=== PATIENT | female | born 1980 | race Caucasian/White ===

== ENCOUNTER 2017-11-16 16:43 | Emergency (ER) | payer OTHER ==
--- NOTE | 2017-11-16 16:51 | EDPHY ---
H & P Time Seen by Provider: 11/16/17 16:50 HPI/ROS: HPI: This is a 37-year-old female who presents with Chief Complaint: Pain all over and thinks she is going to Location:psych Quality: Panic attack Duration: 1-3 hours prior to arrival Signs and Symptoms:+ anxiety, + recent loss, + relationship issues, + shortness of breath, no chest pain, no suicidal ideation, no homicidal ideation, no hallucinations, no paranoia Timing: Acute on chronic Severity: Moderate Context: Patient has a history of depression anxiety for which she takes buspirone presents via EMS as she woke up this morning and felt grief and panic over the recent break-up with her fiance. She reports that she feels aching pain all over body primarily in bilateral lumbar area. Around 11:30 this morning after she started to have increased anxiety and panic attacks including hyperventilation she started to drink alcohol. Denies any radiation/weakness/ urinary symptoms/incontinence/injury. No injury or trauma. Patient reports that she feels numbness and tingling in waves ago through her body accompanied by hot flashes intermittently several times today. She does not like to see a psychiatrist or psychologist as talking about her problems makes the"things worse." She reports that she lives alone but has a strong family and friends support system. Denies any fever, cough, chills, chest pain, abdominal pain, nausea, vomiting. Upon my entrance to the room patient is clearly hyperventilating and extremely anxious. Modifying Factors: None Comment: ROS: see HPI Constitutional: No fever, no chills, no weight loss Eyes: No blurred vision Respiratory: No shortness of breath, no cough Cardiovascular: No chest pain Gastrointestinal: No nausea, no vomiting, no diarrhea Genitourinary: No dysuria Extremities: No myalgias Neurologic: No weakness, no numbness Skin: No rashes Hematologic: No bruising, no bleeding MEDICAL/SURGICAL/SOCIAL HISTORY: Medical history: Depression, anxiety Surgical history: Denies Social history: Employed. Lives alone. CONSTITUTIONAL: Extremely anxious well-appearing adult female, awake and alert , no obvious distress HEENT: Atraumatic and normocephalic, PERRL, EOMI. Tympanic membranes clear. Oropharynx clear, no exudate and moist pink mucosa. Airway patent. No lymphadenopathy. No meningismus. Cardiovascular: Normal S1/S2, regular rate, regular rhythm, without murmur rub or gallop. PULMONARY/CHEST: Symmetrical and nontender. Clear to auscultation bilaterally. Good air movement. No accessory muscle usage. ABDOMEN: Soft, nondistended, nontender, no rebound, no guarding, no peritoneal signs, no masses or organomegaly. No CVAT. EXTREMITIES: 2/2 pulses, strength 5/5, no deformities, no clubbing, no cyanosis or edema. NEUROLOGICAL: no focal neuro deficits. GCS 15. SKIN: Warm and dry, no erythema. no rash. Good capillary refill. PSYCH: Poor eye contact, no flight of ideas, +organized thought process, fair insight and judgment, no auditory and visual command hallucinations, no suicidal ideation with a plan, no homicidal ideation, not paranoid, + guarded Source: Patient Exam Limitations: No limitations Constitutional: Initial Vital Signs Temperature (C) 36.6 C 11/16/17 16:51 Heart Rate 96 11/16/17 16:51 Respiratory Rate 16 11/16/17 16:51 Blood Pressure 137/82 H 11/16/17 16:51 O2 Sat (%) 98 11/16/17 16:51 O2 Delivery Mode Room Air Allergies/Adverse Reactions: alprazolam [From Xanax] Allergy (Verified 11/16/17 16:49) Penicillins Allergy (Verified 11/16/17 16:49) Home Medications: Medication Instructions Recorded busPIRone 11/16/17 hydrOXYzine HCL [Vistaril 25MG] 25 - 50 mg PO Q12 PRN #12 tab 11/16/17 Medical Decision Making ED Course/Re-evaluation: Labs, urinalysis and UDS ordered. Does not meet M1 hold or Detainer criteria. Patient has an allergy to Xanax so given Klonopin. Vital signs stable upon arrival. I have asked the patient to call a family member to come to the emergency room to contract for safety, drive her home after the ER visit and stay with her. Given a small dose of hydroxyzine for severe anxiety in the interim until she follows up with psychiatrist/psychologist. Urinalysis shows 2+ ketones and trace bacteria. No clear signs of infection. Sent for urine culture. No indication to start antibiotics. 1822: Labs reviewed and showed decreased CO2 and increased anion gap consistent with hyperventilation patient described. Serum ethanol 347. 1827: Reassessed patient who has been sleeping soundly for the last 45 min. Gave patient the option of being discharged to the [facility] for detox and treatment and she has politely declined. Patient reports that she will call her father to come pick her up. This patient was seen under the supervision of my secondary supervising physician. I evaluated care for this patient independently. Discussed this patient with Dr. Hdz who did not see the patient. Differential Diagnosis: Differential diagnosis includes but is not limited to grief, functional in situational depression, generalized anxiety disorder, panic attack. - Data Points Laboratory Results: Laboratory Results 11/16/17 17:20 11/16/17 17:20 11/16/17 11/16/17 11/16/17 17:50 17:20 17:20 WBC RBC Hgb Hct MCV MCH MCHC RDW Plt Count MPV Neut % (Auto) Lymph % (Auto) [place] % (Auto) Eos % (Auto) Baso % (Auto) Nucleat RBC Rel Count Absolute Neuts (auto) Absolute Lymphs (auto) Absolute Monos (auto) Absolute Eos (auto) Absolute Basos (auto) Absolute Nucleated RBC Immature Gran % Immature Gran # Sodium 141 mEq/L mEq/L (135-145) Potassium 4.4 mEq/L mEq/L (3.5-5.2) Chloride 101 mEq/L mEq/L (97-110) Carbon Dioxide 9 mEq/l L* mEq/l (22-31) Anion Gap 31 mEq/L H mEq/L (8-16) BUN 13 mg/dL mg/dL (7-23) Creatinine 0.7 mg/dL mg/dL (0.6-1.0) Estimated GFR > 60 Glucose 59 mg/dL L mg/dL (70-100) Calcium 8.7 mg/dL mg/dL (8.5-10.4) Troponin I < 0.012 ng/mL ng/mL (0.000-0.034) Beta HCG, Qual NEGATIVE Urine Color YELLOW Urine Appearance CLEAR Urine pH 5.0 (5.0-7.5) Ur Specific [place] 1.019 (1.002-1.030) Urine Protein 1+ H (NEGATIVE) Urine Ketones 2+ H (NEGATIVE) Urine Blood NEGATIVE (NEGATIVE) Urine Nitrate NEGATIVE (NEGATIVE) Urine Bilirubin NEGATIVE (NEGATIVE) Urine Urobilinogen NEGATIVE EU EU (0.2-1.0) Ur Leukocyte Esterase NEGATIVE (NEGATIVE) Urine RBC 1-3 /hpf /hpf (0-3) Urine WBC 1-3 /hpf /hpf (0-3) Ur Epithelial Cells TRACE /lpf /lpf (NONE-1+) Urine Bacteria TRACE /hpf H /hpf (NONE SEEN) Hyaline Casts 25-50 /lpf H /lpf (0-1) Urine Mucus TRACE /lpf /lpf (NONE-1+) Urine Glucose NEGATIVE (NEGATIVE) Urine Opiates Screen NEGATIVE (NEGATIVE) Urine Barbiturates NEGATIVE (NEGATIVE) Ur Phencyclidine Scrn NEGATIVE (NEGATIVE) Ur Amphetamine Screen NEGATIVE (NEGATIVE) U Benzodiazepines Scrn NEGATIVE (NEGATIVE) Urine Cocaine Screen NEGATIVE (NEGATIVE) U Marijuana (THC) Screen NEGATIVE (NEGATIVE) Ethyl Alcohol 347 mg/dL H mg/dL (0-10) 11/16/17 17:20 WBC 5.30 10^3/uL 10^3/uL (3.80-9.50) RBC 4.92 10^6/uL 10^6/uL (4.18-5.33) Hgb 15.7 g/dL g/dL (12.6-16.3) Hct 44.8 % % (38.0-47.0) MCV 91.1 fL fL (81.5-99.8) MCH 31.9 pg pg (27.9-34.1) MCHC 35.0 g/dL g/dL (32.4-36.7) RDW 13.2 % % (11.5-15.2) Plt Count 401 10^3/uL H 10^3/uL (150-400) MPV 8.8 fL fL (8.7-11.7) Neut % (Auto) 63.4 % % (39.3-74.2) Lymph % (Auto) 29.8 % % (15.0-45.0) [place] % (Auto) 5.5 % % (4.5-13.0) Eos % (Auto) 0.0 % L % (0.6-7.6) Baso % (Auto) 1.1 % % (0.3-1.7) Nucleat RBC Rel Count 0.0 % % (0.0-0.2) Absolute Neuts (auto) 3.36 10^3/uL 10^3/uL (1.70-6.50) Absolute Lymphs (auto) 1.58 10^3/uL 10^3/uL (1.00-3.00) Absolute Monos (auto) 0.29 10^3/uL L 10^3/uL (0.30-0.80) Absolute Eos (auto) 0.00 10^3/uL L 10^3/uL (0.03-0.40) Absolute Basos (auto) 0.06 10^3/uL 10^3/uL (0.02-0.10) Absolute Nucleated RBC 0.00 10^3/uL 10^3/uL (0-0.01) Immature Gran % 0.2 % % (0.0-1.1) Immature Gran # 0.01 10^3/uL 10^3/uL (0.00-0.10) Sodium Potassium Chloride Carbon Dioxide Anion Gap BUN Creatinine Estimated GFR Glucose Calcium Troponin I Beta HCG, Qual Urine Color Urine Appearance Urine pH Ur Specific [place] Urine Protein Urine Ketones Urine Blood Urine Nitrate Urine Bilirubin Urine Urobilinogen Ur Leukocyte Esterase Urine RBC Urine WBC Ur Epithelial Cells Urine Bacteria Hyaline Casts Urine Mucus Urine Glucose Urine Opiates Screen Urine Barbiturates Ur Phencyclidine Scrn Ur Amphetamine Screen U Benzodiazepines Scrn Urine Cocaine Screen U Marijuana (THC) Screen Ethyl Alcohol Medications Given: Discontinued Medications Clonazepam (Klonopin) 1 mg PO EDNOW ONE Stop: 11/16/17 16:58 Last Admin: 11/16/17 17:00 Dose: 1 mg Departure - Departure Disposition: Home, Routine, Self-Care Clinical Impression: Grief reaction, Panic attack as reaction to stress Alcohol intoxication Qualifiers: Complication of substance-induced condition: uncomplicated Qualified Code(s): F10.920 - Alcohol use, unspecified with intoxication, uncomplicated Condition: Good Instructions: Grief and Loss (ED), Anxiety (ED), Panic Attack (ED) Additional Instructions: Establish care with [facility] and regularly attend counseling sessions during this time of grief and loss. Continue to take Wellbutrin as prescribed. Refrain from drinking alcohol excessively. Enroll in an alcohol detox and treatment program. Call 911 if you have thoughts of hurting or killing yourself or anyone else, or have any new or worsening symptoms that concern you. Referrals: [facility] [Outside] - As per Instructions [facility] [Outside] - As per Instructions Prescriptions: hydrOXYzine HCL [Vistaril 25MG] 25 - 50 mg PO Q12 PRN #12 tab PRN Reason: Anxiety
[2017-11-16] MEDS ORDERED: clonazePAM 1 MG TAB PO ONE (16:57)
[2017-11-16 16:58] VITALS: TEMP 97.9
[2017-11-16 17:30] LABS: PLATELET COUNT 401 10^3/uL (150-400)
[2017-11-16 18:56] VITALS: BP 135/70; PULSE 85; RESP 20; O2SAT 95
== END 2017-11-16 18:58 | disposition home or self-care (01) ==
LOC: EDUNIT#
DX: F41.0 Panic disorder [episodic paroxysmal anxiety] (principal); F43.20 Adjustment disorder, unspecified; F10.920 Alcohol use, unspecified with intoxication, uncomplicated
CPT/HCPCS: 80305; G0480

== ENCOUNTER 2018-02-15 00:57 | Emergency (ER) | payer OTHER ==
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
[2018-02-15] MEDS ORDERED: CHLORDIAZEPOXIDE 25MG PREPK#6 BTL TAKEHOME ONE (02:11)
[2018-02-15 02:43] VITALS: BP 129/89
== END 2018-02-15 02:42 | disposition home or self-care (01) ==
LOC: EDUNIT#
DX: F10.129 Alcohol abuse with intoxication, unspecified (principal); F17.200 Nicotine dependence, unspecified, uncomplicated

== ENCOUNTER 2018-02-27 01:19 | Emergency (ER) | payer OTHER ==
[2018-02-27] MEDS ORDERED: ONDANSETRON 4 MG/2 ML VIAL IVP ONE (01:24)
[2018-02-27] MEDS ORDERED: KETOROLAC 30 MG/1 ML SDV IVP ONE (01:24)
[2018-02-27] MEDS ORDERED: NS 1,000 ML IV ONE (01:24)
--- NOTE | 2018-02-27 01:35 | EDPHY ---
H & P Stated Complaint: flank pain Time Seen by Provider: 02/27/18 01:23 HPI/ROS: HPI The patient presents with bilateral flank pain that began at approximately 8:00 p.m. Tonight and has gotten progressively worse since then. The pain is achy, does not radiate, is severe. She has not had this pain before. She denies any dysuria, hematuria. She has had nausea without any vomiting. She has not had fevers or chills. She denies any trauma. She is a heavy alcohol drinker.. REVIEW OF SYSTEMS Constitutional: No fever, no chills. Eyes: No discharge. ENT: No sore throat. Cardiovascular: No chest pain, no palpitations. Respiratory: No cough, no shortness of breath. Gastrointestinal: No abdominal pain, no vomiting. Genitourinary: No hematuria. Musculoskeletal: Bilateral flank pain Skin: No rashes. Neurological: No headache. PMHx: No diabetes, no hypertension Soc Hx: Housed, alcohol abuse PHYSICAL General Appearance: Alert, uncomfortable appearing Eyes: Pupils equal and round no pallor or injection ENT, Mouth: Mucous membranes moist Respiratory: There are no retractions, lungs are clear to auscultation Cardiovascular: Regular rate and rhythm Gastrointestinal: Abdomen is soft and non-tender, no masses, bowel sounds normal Back: There is bilateral CVA tenderness, there is an abrasion to her left flank Neurological: A&O, moves all extremities Skin: Warm and dry, no rashes Musculoskeletal: Neck is supple non tender Extremities: symmetrical, full range of motion Psychiatric: Patient is oriented X 3, there is no agitation Source: Patient, EMS Exam Limitations: No limitations - Medical/Surgical History Hx Asthma: No Hx Chronic Respiratory Disease: No Hx Diabetes: No Hx Cardiac Disease: No Hx Renal Disease: No Hx Cirrhosis: No Hx Alcoholism: Yes Hx HIV/AIDS: No Hx Splenectomy or Spleen Trauma: No Other PMH: anxiety, ETOH - Social History Smoking Status: Current every day smoker Constitutional: Initial Vital Signs Temperature (C) 36.3 C 02/27/18 01:25 Heart Rate 95 02/27/18 01:25 Respiratory Rate 18 02/27/18 01:25 Blood Pressure 119/84 H 02/27/18 01:25 O2 Sat (%) 96 02/27/18 01:25 O2 Delivery Mode Room Air Allergies/Adverse Reactions: acetaminophen [From Vicodin] Allergy (Verified 02/27/18 01:23) hydrocodone [From Vicodin] Allergy (Verified 02/27/18 01:23) Penicillins Allergy (Verified 02/27/18 01:23) Home Medications: Medication Instructions Recorded NK [No Known Home Meds] 02/27/18 Medical Decision Making - Diagnostics Imaging Results: CT abdomen pelvis demonstrates fatty liver without any nephrolithiasis or ureterolithiasis, discussed with Dr. Canas of Radiology Procedures: Bedside limited abdominal Ultrasound- performed and interpreted by me. Indication: Flank pain Findings: No hydronephrosis right kidney, no hydronephrosis left kidney, no visible kidney stones within the kidneys bilaterally Impression: No hydronephrosis bilaterally Differential Diagnosis: 37-year-old female brought in by ambulance for bilateral flank pain which began at about 8:00 p.m. Tonight associated with nausea and no other symptoms. On exam, she is anxious appearing, vital signs are normal, she has tenderness to bilateral flanks. Differential diagnosis includes pyelonephritis, ureterolithiasis, less likely AAA. On reassessment, patient's pain is still present though improved after receiving Toradol and Zofran. Labs do reveal AST greater than ALT concerning for alcoholic hepatitis with elevated lipase. However none of these explain her flank pain. Her UA was equivocal with some red blood cells. I am concerned about ureterolithiasis I plan on CT scan for further assessment. The patient's pain completely resolved within the emergency department. CT scan did not demonstrate any ureterolithiasis or lieu sedate the cause of her pain. She does have a fatty liver. Given that she does not have any irritative voiding symptoms, fever, vomiting, I will not treat her for pyelonephritis at this time. However, I will send a urine culture and if this returns positive then I would initiate treatment. She says she often has is flank pain when she is in alcohol withdrawal. She was given a dose of Ativan here for withdrawals. She will be discharged home. - Data Points Laboratory Results: Laboratory Results 02/27/18 01:29 02/27/18 01:29 02/27/18 02/27/18 02/27/18 01:45 01:29 01:29 WBC RBC Hgb Hct MCV MCH MCHC RDW Plt Count MPV Neut % (Auto) Lymph % (Auto) [place] % (Auto) Eos % (Auto) Baso % (Auto) Nucleat RBC Rel Count Absolute Neuts (auto) Absolute Lymphs (auto) Absolute Monos (auto) Absolute Eos (auto) Absolute Basos (auto) Absolute Nucleated RBC Immature Gran % Immature Gran # Sodium 140 mEq/L mEq/L (135-145) Potassium 4.3 mEq/L mEq/L (3.3-5.0) Chloride 99 mEq/L mEq/L (97-110) Carbon Dioxide 11 mEq/l L mEq/l (22-31) Anion Gap 30 mEq/L H mEq/L (8-16) BUN 13 mg/dL mg/dL (7-23) Creatinine 0.6 mg/dL mg/dL (0.6-1.0) Estimated GFR > 60 Glucose 71 mg/dL mg/dL (70-100) Calcium 9.1 mg/dL mg/dL (8.5-10.4) Total Bilirubin 1.0 mg/dL mg/dL (0.1-1.4) Conjugated Bilirubin 0.5 mg/dL mg/dL (0.0-0.5) Unconjugated Bilirubin 0.5 mg/dL mg/dL (0.0-1.1) AST 364 IU/L H IU/L (14-46) ALT 158 IU/L H IU/L (9-52) Alkaline Phosphatase 84 IU/L IU/L (38-126) Total Protein 8.3 g/dL H g/dL (6.3-8.2) Albumin 5.1 g/dL H g/dL (3.5-5.0) Lipase 392 IU/L H IU/L (23-300) Beta HCG, Qual NEGATIVE Urine Color YELLOW Urine Appearance HAZY Urine pH 5.0 (5.0-7.5) Ur Specific [place] 1.024 (1.002-1.030) Urine Protein 2+ H (NEGATIVE) Urine Ketones 2+ H (NEGATIVE) Urine Blood 1+ H (NEGATIVE) Urine Nitrate NEGATIVE (NEGATIVE) Urine Bilirubin NEGATIVE (NEGATIVE) Urine Urobilinogen NEGATIVE EU EU (0.2-1.0) Ur Leukocyte Esterase NEGATIVE (NEGATIVE) Urine RBC 1-3 /hpf /hpf (0-3) Urine WBC 3-5 /hpf H /hpf (0-3) Ur Epithelial Cells TRACE /lpf /lpf (NONE-1+) Urine Bacteria 2+ /hpf H /hpf (NONE SEEN) Urine Mucus TRACE /lpf /lpf (NONE-1+) Urine Glucose NEGATIVE (NEGATIVE) Ethyl Alcohol 326 mg/dL H mg/dL (0-10) 02/27/18 01:29 WBC 4.41 10^3/uL 10^3/uL (3.80-9.50) RBC 4.68 10^6/uL 10^6/uL (4.18-5.33) Hgb 15.0 g/dL g/dL (12.6-16.3) Hct 42.9 % % (38.0-47.0) MCV 91.7 fL fL (81.5-99.8) MCH 32.1 pg pg (27.9-34.1) MCHC 35.0 g/dL g/dL (32.4-36.7) RDW 13.3 % % (11.5-15.2) Plt Count 196 10^3/uL 10^3/uL (150-400) MPV 8.3 fL L fL (8.7-11.7) Neut % (Auto) 57.4 % % (39.3-74.2) Lymph % (Auto) 35.6 % % (15.0-45.0) [place] % (Auto) 5.9 % % (4.5-13.0) Eos % (Auto) 0.0 % L % (0.6-7.6) Baso % (Auto) 0.9 % % (0.3-1.7) Nucleat RBC Rel Count 0.0 % % (0.0-0.2) Absolute Neuts (auto) 2.53 10^3/uL 10^3/uL (1.70-6.50) Absolute Lymphs (auto) 1.57 10^3/uL 10^3/uL (1.00-3.00) Absolute Monos (auto) 0.26 10^3/uL L 10^3/uL (0.30-0.80) Absolute Eos (auto) 0.00 10^3/uL L 10^3/uL (0.03-0.40) Absolute Basos (auto) 0.04 10^3/uL 10^3/uL (0.02-0.10) Absolute Nucleated RBC 0.00 10^3/uL 10^3/uL (0-0.01) Immature Gran % 0.2 % % (0.0-1.1) Immature Gran # 0.01 10^3/uL 10^3/uL (0.00-0.10) Sodium Potassium Chloride Carbon Dioxide Anion Gap BUN Creatinine Estimated GFR Glucose Calcium Total Bilirubin Conjugated Bilirubin Unconjugated Bilirubin AST ALT Alkaline Phosphatase Total Protein Albumin Lipase Beta HCG, Qual Urine Color Urine Appearance Urine pH Ur Specific [place] Urine Protein Urine Ketones Urine Blood Urine Nitrate Urine Bilirubin Urine Urobilinogen Ur Leukocyte Esterase Urine RBC Urine WBC Ur Epithelial Cells Urine Bacteria Urine Mucus Urine Glucose Ethyl Alcohol Medications Given: Discontinued Medications Sodium Chloride (Ns) 1,000 mls @ 0 mls/hr IV EDNOW ONE; Wide Open PRN Reason: Protocol Stop: 02/27/18 01:25 Last Admin: 02/27/18 01:32 Dose: 1,000 mls Ketorolac Tromethamine (Toradol) 15 mg IVP EDNOW ONE Stop: 02/27/18 01:25 Last Admin: 02/27/18 01:33 Dose: 15 mg Lorazepam (Ativan Injection) 1 mg IVP EDNOW ONE Stop: 02/27/18 02:06 Last Admin: 02/27/18 02:08 Dose: 1 mg Ondansetron HCl (Zofran) 4 mg IVP EDNOW ONE Stop: 02/27/18 01:25 Last Admin: 02/27/18 01:33 Dose: 4 mg Departure - Departure Disposition: Home, Routine, Self-Care Clinical Impression: Flank pain, acute, Fatty liver, alcoholic, Alcohol abuse Condition: Good Instructions: Abuse of Alcohol (ED), Flank Pain (ED) Additional Instructions: It is very important that you stop drinking alcohol as it is seriously affecting her liver. The cause of your pain in her back is not entirely clear but could be related to dehydration. Please make sure to drink plenty of water over the next few days. Please follow-up with your primary care doctor in the next 1-2 days. If you do not have a primary care doctor, I have listed the on- call outpatient medicine doctor that I can see you for a follow-up visit. Referrals: Pedrito Ellis MD [Medical Doctor] - As per Instructions
[2018-02-27 01:38] LABS: PLATELET COUNT 196 10^3/uL (150-400)
[2018-02-27] MEDS ORDERED: LORazepam 2 MG/ML INJ IVP ONE (02:05)
[2018-02-27 03:44] VITALS: BP 123/64
== END 2018-02-27 04:45 | disposition home or self-care (01) ==
LOC: EDUNIT#
DX: K70.0 Alcoholic fatty liver (principal); E86.9 Volume depletion, unspecified; F17.200 Nicotine dependence, unspecified, uncomplicated
CPT/HCPCS: 96374; G0480; J1885; J2060; J2405

== ENCOUNTER 2018-03-04 15:53 | Emergency (ER) | payer SELFPAY ==
[2018-03-04] MEDS ORDERED: PANTOPRAZOLE SODIUM 40 MG VIAL IVP ONE (16:07)
[2018-03-04] MEDS ORDERED: ONDANSETRON 4 MG/2 ML VIAL IVP ONE (16:07)
[2018-03-04] MEDS ORDERED: LORazepam 1 MG TAB PO PRN (16:07)
[2018-03-04] MEDS ORDERED: NS 1,000 ML IV ONE ×2 (16:07→16:51)
[2018-03-04] MEDS ORDERED: LORazepam 2 MG/ML INJ IVP PRN (16:07)
--- NOTE | 2018-03-04 16:09 | EDPHY ---
General - History Smoking Status: Current every day smoker Time Seen by Provider: 03/04/18 15:57 Narrative: CHIEF COMPLAINT: Alcohol, "hurting all over," vomiting HISTORY OF PRESENT ILLNESS: Patient presents by EMS with reports of acute alcohol intoxication, vomiting, "pain all over." She reports daily ingestion of at least 2 bottles of wine with some additional vodka the varies daily. She last had alcohol intake approximately 6 hr ago. Her states he called 911 because he was concerned that he had not heard from for a day and half. When the police arrived, she states that she lost her phone. Due to her above complaints that then transferred here to the hospital at her request. She has 2 days duration of vomiting with intolerance of liquids and solids. She has generalized epigastric discomfort as well as "pain all over."No fever. No chest pain. No cough or shortness of breath. No other associated complaints or modifying factors. REVIEW OF SYSTEMS: Ten systems reviewed and are negative unless otherwise noted in the HPI PCP: "I don't remember" SPECIALISTS: None PAST MEDICAL HISTORY: Anxiety, Alcohol abuse. Three inpatient stays for detoxification PAST SURGICAL HISTORY: No surgical history SOCIAL HISTORY: Nonsmoker. Daily alcohol use consisting of 2 bottles of wine and various amounts of vodka. Denies any drug use. FAMILY HISTORY: Noncontributory EXAMINATION General Appearance: Alert, no distress Head: normocephalic, atraumatic Eyes: Pupils equal and round, no conjunctival pallor or injection ENT, Mouth: Mucous membranes moist. Airway patent Neck: Normal inspection, supple, non-tender Respiratory: Lungs are clear to auscultation Cardiovascular: Regular rate and rhythm. No murmur Gastrointestinal: Abdomen is soft and nontender Back: non-tender, no bony abnormalities Neurological: GCS 15. A&O, nonfocal, normal [id number]. No pronator drift. Mild resting tremor. Skin: Warm and dry, no rash. No petechiae or purpura Extremities: Nontender, no pedal edema Psychiatric: Mood and affect normal DIFFERENTIAL DIAGNOSES: Including but not limited to acute alcohol intoxication, alcoholism, alcohol abuse, pancreatitis, gastritis MDM: 4:00 p.m. Nausea, vomiting and acute alcohol intoxication with chronic alcohol abuse and dependency. Vital signs are within normal limits. I do not appreciate any evidence of delirium tremens or encephalopathy. Her abdominal exam is benign. She does appear very anxious and possibly going to early withdrawals, but she is only 6 hr into cessation of alcohol use. I have ordered the ED alcohol withdrawal protocol and the initial CIWA score is pending. 5:00 p.m. Patient has an at gap of 28 and a serum alcohol level of 519. Her lipase is slightly elevated. She is not tolerating intake by mouth. IV fluids being administered. 5:10 p.m. Case discussed with Dr. Bravo. He agrees with management thus far. Recommends continuation of the 2 L IV fluid and recheck her anion gap and abdominal exam. 6:20 p.m. Patient re-evaluated. She has received 3 L IV fluid resuscitation. Her anion gap has nearly closed 17 now, down from 28. She is awake and alert. She is ambulating without any assistance. She has had several drinks of water and juice without any vomiting. She has no abdominal pain. She has no fever. Her heart rate is well within normal limits without any tachycardia. I offered transport to the [facility] for Librium taper but she has declined. I offered admission the hospital but she has declined. She does have significant other at bedside who is willing to assume care for drive her home. I informed that they can present to the [facility] should they change their mind or return here for any return of her symptoms. She is comfortable this plan and discharged home stable condition. SUPERVISION: Patient was independently examined, but I discussed the case with my secondary supervising physician Dr. Bravo ([facility]) - Objective Vital Signs: Initial Vital Signs Temperature (C) 97.3 F 03/04/18 15:53 Heart Rate 86 03/04/18 15:53 Respiratory Rate 16 03/04/18 15:53 Blood Pressure 125/79 H 03/04/18 15:53 O2 Sat (%) 98 03/04/18 15:53 O2 Delivery Mode Room Air Allergies/Adverse Reactions: acetaminophen [From Vicodin] Allergy (Verified 02/27/18 01:23) hydrocodone [From Vicodin] Allergy (Verified 02/27/18 01:23) Penicillins Allergy (Verified 02/27/18 01:23) Home Medications: Medication Instructions Recorded traZODone 03/04/18 Laboratory Results: Laboratory Results 03/04/18 15:53 03/04/18 17:43 03/04/18 03/04/18 03/04/18 18:03 17:43 15:53 WBC RBC Hgb Hct MCV MCH MCHC RDW Plt Count MPV Neut % (Auto) Lymph % (Auto) [place] % (Auto) Eos % (Auto) Baso % (Auto) Nucleat RBC Rel Count Absolute Neuts (auto) Absolute Lymphs (auto) Absolute Monos (auto) Absolute Eos (auto) Absolute Basos (auto) Absolute Nucleated RBC Immature Gran % Immature Gran # Sodium 143 mEq/L mEq/L (135-145) Potassium 3.9 mEq/L mEq/L (3.3-5.0) Chloride 106 mEq/L mEq/L (97-110) Carbon Dioxide 20 mEq/l L mEq/l (22-31) Anion Gap 17 mEq/L H mEq/L (8-16) BUN 12 mg/dL mg/dL (7-23) Creatinine 0.6 mg/dL mg/dL (0.6-1.0) Estimated GFR > 60 Glucose 72 mg/dL mg/dL (70-100) Calcium 6.6 mg/dL L mg/dL (8.5-10.4) Magnesium Total Bilirubin Conjugated Bilirubin Unconjugated Bilirubin AST ALT Alkaline Phosphatase Total Protein Albumin Lipase Beta HCG, Qual NEGATIVE Urine Opiates Screen NEGATIVE (NEGATIVE) Urine Barbiturates NEGATIVE (NEGATIVE) Ur Phencyclidine Scrn NEGATIVE (NEGATIVE) Ur Amphetamine Screen NEGATIVE (NEGATIVE) U Benzodiazepines Scrn NEGATIVE (NEGATIVE) Urine Cocaine Screen NEGATIVE (NEGATIVE) U Marijuana (THC) Screen NEGATIVE (NEGATIVE) Ethyl Alcohol 03/04/18 03/04/18 15:53 15:53 WBC 6.36 10^3/uL 10^3/uL (3.80-9.50) RBC 4.79 10^6/uL 10^6/uL (4.18-5.33) Hgb 15.3 g/dL g/dL (12.6-16.3) Hct 42.5 % % (38.0-47.0) MCV 88.7 fL fL (81.5-99.8) MCH 31.9 pg pg (27.9-34.1) MCHC 36.0 g/dL g/dL (32.4-36.7) RDW 13.5 % % (11.5-15.2) Plt Count 127 10^3/uL L 10^3/uL (150-400) MPV 9.0 fL fL (8.7-11.7) Neut % (Auto) 36.3 % L % (39.3-74.2) Lymph % (Auto) 55.8 % H % (15.0-45.0) [place] % (Auto) 6.6 % % (4.5-13.0) Eos % (Auto) 0.3 % L % (0.6-7.6) Baso % (Auto) 0.8 % % (0.3-1.7) Nucleat RBC Rel Count 0.0 % % (0.0-0.2) Absolute Neuts (auto) 2.31 10^3/uL 10^3/uL (1.70-6.50) Absolute Lymphs (auto) 3.55 10^3/uL H 10^3/uL (1.00-3.00) Absolute Monos (auto) 0.42 10^3/uL 10^3/uL (0.30-0.80) Absolute Eos (auto) 0.02 10^3/uL L 10^3/uL (0.03-0.40) Absolute Basos (auto) 0.05 10^3/uL 10^3/uL (0.02-0.10) Absolute Nucleated RBC 0.00 10^3/uL 10^3/uL (0-0.01) Immature Gran % 0.2 % % (0.0-1.1) Immature Gran # 0.01 10^3/uL 10^3/uL (0.00-0.10) Sodium 142 mEq/L mEq/L (135-145) Potassium 3.9 mEq/L mEq/L (3.3-5.0) Chloride 97 mEq/L mEq/L (97-110) Carbon Dioxide 17 mEq/l L mEq/l (22-31) Anion Gap 28 mEq/L H mEq/L (8-16) BUN 13 mg/dL mg/dL (7-23) Creatinine 0.7 mg/dL mg/dL (0.6-1.0) Estimated GFR > 60 Glucose 80 mg/dL mg/dL (70-100) Calcium 8.9 mg/dL mg/dL (8.5-10.4) Magnesium 1.8 mg/dL mg/dL (1.6-2.3) Total Bilirubin 1.1 mg/dL mg/dL (0.1-1.4) Conjugated Bilirubin 0.6 mg/dL H mg/dL (0.0-0.5) Unconjugated Bilirubin 0.5 mg/dL mg/dL (0.0-1.1) AST 607 IU/L H IU/L (14-46) ALT 316 IU/L H IU/L (9-52) Alkaline Phosphatase 89 IU/L IU/L (38-126) Total Protein 8.0 g/dL g/dL (6.3-8.2) Albumin 5.0 g/dL g/dL (3.5-5.0) Lipase 410 IU/L H IU/L (23-300) Beta HCG, Qual Urine Opiates Screen Urine Barbiturates Ur Phencyclidine Scrn Ur Amphetamine Screen U Benzodiazepines Scrn Urine Cocaine Screen U Marijuana (THC) Screen Ethyl Alcohol 519 mg/dL H* mg/dL (0-10) Medications Given: Discontinued Medications Chlordiazepoxide (Librium 25 Mg Prepack#6) 1 btl TAKEHOME EDNOW ONE Stop: 03/04/18 18:32 Last Admin: 03/04/18 18:45 Dose: Not Given Sodium Chloride (Ns) 1,000 mls @ 0 mls/hr IV EDNOW ONE; Wide Open PRN Reason: Protocol Stop: 03/04/18 16:08 Last Admin: 03/04/18 16:20 Dose: 1,000 mls Sodium Chloride (Ns) 1,000 mls @ 0 mls/hr IV EDNOW ONE; Wide Open PRN Reason: Protocol Stop: 03/04/18 16:52 Last Admin: 03/04/18 17:05 Dose: 1,000 mls Lorazepam (Ativan Injection) 0 mg IVP Q1H PRN; Protocol PRN Reason: Alcohol Withdrawal w/IV access Stop: 03/05/18 04:07 Last Admin: 03/04/18 16:21 Dose: 2 mg Ondansetron HCl (Zofran) 4 mg IVP EDNOW ONE Stop: 03/04/18 16:08 Last Admin: 03/04/18 16:21 Dose: 4 mg Pantoprazole Sodium (Protonix) 40 mg IVP EDNOW ONE Stop: 06/25/18 16:08 Last Admin: 03/04/18 16:21 Dose: 40 mg Departure - Departure Disposition: Home, Routine, Self-Care Clinical Impression: Acute alcohol intoxication Qualifiers: Complication of substance-induced condition: uncomplicated Qualified Code(s): F10.929 - Alcohol use, unspecified with intoxication, unspecified Nausea & vomiting Qualifiers: Vomiting type: unspecified Vomiting Intractability: non-intractable Qualified Code(s): R11.2 - Nausea with vomiting, unspecified Condition: Good Instructions: Alcohol Intoxication (ED), Abuse of Alcohol (ED) Additional Instructions: 2. Return to emergency department for abdominal pain, vomiting, chest pain, fever 3. Strongly recommend alcohol cessation supervised by physician or inpatient care Referrals: [facility] [Outside] - As per Instructions Charley Figueroa MD [Medical Doctor] - As per Instructions
[2018-03-04 16:31] LABS: PLATELET COUNT 127 10^3/uL (150-400)
[2018-03-04] MEDS ORDERED: CHLORDIAZEPOXIDE 25MG PREPK#6 BTL TAKEHOME ONE (18:31)
[2018-03-04 18:42] VITALS: BP 118/65
== END 2018-03-04 18:48 | disposition home or self-care (01) ==
LOC: EDUNIT#
DX: R11.2 Nausea with vomiting, unspecified (principal); F10.929 Alcohol use, unspecified with intoxication, unspecified; E86.9 Volume depletion, unspecified; F17.200 Nicotine dependence, unspecified, uncomplicated
CPT/HCPCS: 80305; 96374; G0480; J2060; J2405

== ENCOUNTER 2018-04-06 15:55 | Emergency (ER) | payer MEDICAID, OTHER ==
[2018-04-06 17:02] VITALS: BP 105/80
[2018-04-06] MEDS ORDERED: chlordiazePOXIDE 25 MG CAP PO ONE (17:09)
[2018-04-06] MEDS ORDERED: LORazepam 2 MG/ML INJ IVP ONE (17:09)
[2018-04-06] MEDS ORDERED: NS 1,000 ML IV ONE (17:09)
--- NOTE | 2018-04-06 18:21 | EDPHY ---
H & P Stated Complaint: withdrawing from ETOH possible siezure last night, tongue swollen - Personal History LMP (Females 10-55): 1-7 Days Ago - Medical/Surgical History Hx Asthma: No Hx Chronic Respiratory Disease: No Hx Diabetes: No Hx Cardiac Disease: No Hx Renal Disease: No Hx Cirrhosis: No Hx Alcoholism: Yes Hx HIV/AIDS: No Hx Splenectomy or Spleen Trauma: No Other PMH: anxiety, ETOH abuse - Social History Smoking Status: Current every day smoker Time Seen by Provider: 04/06/18 17:00 HPI/ROS: Chief complaint: Alcohol withdrawal, possible seizure last night History of present illness: This is a 38-year-old female who presents to the emergency department concerned she is going through alcohol withdrawal. She is concerned she had a seizure last night. She states she has been attempting to cut down on the amount she is drinking over the last few days. Last night she believe she has a seizure she woke up on the floor no she had bitten her tongue. She has felt unwell since then. Her last drink was early this morning. She is describing generalized malaise and shakiness. She has gone through alcohol withdrawal before and this feels similar. She denies other associated signs or symptoms including no fevers or cold symptoms, no paresthesias, no weakness or paralysis, no trauma. Review of systems: A 10 point review of systems was obtained and other than described above was negative (Gelacio Puckett) - Physical Exam Exam: General Appearance: Alert, nontoxic, mildly tremulous. Eyes: Pupils equal and round no pallor or injection. ENT, Mouth: Mucous membranes moist. Respiratory: There are no retractions, lungs are clear to auscultation. Cardiovascular: Regular rate and rhythm. Gastrointestinal: Abdomen is soft and non tender, no masses, bowel sounds normal. Neurological: Alert and oriented x4. Cranial nerves 2-12 grossly intact. Strength and sensation intact and symmetrical. Skin: Warm and dry, no rashes. Musculoskeletal: Neck is supple non tender. Extremities are symmetrical, full range of motion. Psychiatric: Patient is oriented X 3, there is no agitation. (Gelacio Puckett) Constitutional: Initial Vital Signs Temperature (C) 36.7 C 04/06/18 15:59 Heart Rate 93 04/06/18 15:59 Respiratory Rate 20 04/06/18 15:59 Blood Pressure 139/84 H 04/06/18 15:59 O2 Sat (%) 97 04/06/18 15:59 O2 Delivery Mode Room Air Allergies/Adverse Reactions: acetaminophen [From Vicodin] Allergy (Verified 04/06/18 15:58) hydrocodone [From Vicodin] Allergy (Verified 04/06/18 15:58) Penicillins Allergy (Verified 04/06/18 15:58) Home Medications: Medication Instructions Recorded traZODone 03/04/18 Hydroxyzine HCl 03/23/18 Seroquel 03/23/18 DESVENLAFAXINE SUCCINATE 04/06/18 Medical Decision Making ED Course/Re-evaluation: The patient was evaluated and managed by the physician's lab assistant. My cosignature indicates that I reviewed the chart and I agree with the findings and plan of care as documented. I am the secondary supervising physician. ( Ivanna Castro) Patient is discussed with my secondary supervising physician Dr. Ivanna Castro. Patient presents to the emergency department concerned she is going through alcohol withdrawal. She has a history of alcohol abuse. She believes she had a seizure last night. She is feeling unwell and tremulous today. Physical exam does show evidence of tongue biting. She has a nonfocal neurologic exam. Blood studies are obtained, no major derangements. She was IV hydrated with normal saline. Treated with oral Librium and IV Ativan. However, before I was able to revisit the patient and reassess her she apparently had removed her own IV and eloped from the emergency department. I do believe she was fully alert and oriented. I believe she is capable of making her own medical decisions. Again she eloped, she did not inform us she was leaving. (Gelacio Puckett) Differential Diagnosis: Included but not limited to polysubstance abuse, alcohol intoxication, alcohol withdrawal, DTs, electrolyte disturbances (Gelacio Puckett) - Data Points Laboratory Results: Laboratory Results 04/06/18 17:31 04/06/18 17:31 04/06/18 04/06/18 04/06/18 17:31 17:31 17:31 WBC 5.39 10^3/uL 10^3/uL (3.80-9.50) RBC 3.98 10^6/uL L 10^6/uL (4.18-5.33) Hgb 12.8 g/dL g/dL (12.6-16.3) Hct 36.9 % L % (38.0-47.0) MCV 92.7 fL fL (81.5-99.8) MCH 32.2 pg pg (27.9-34.1) MCHC 34.7 g/dL g/dL (32.4-36.7) RDW 14.3 % % (11.5-15.2) Plt Count 134 10^3/uL L 10^3/uL (150-400) MPV 9.9 fL fL (8.7-11.7) Neut % (Auto) 66.7 % % (39.3-74.2) Lymph % (Auto) 18.9 % % (15.0-45.0) [place] % (Auto) 13.4 % H % (4.5-13.0) Eos % (Auto) 0.4 % L % (0.6-7.6) Baso % (Auto) 0.2 % L % (0.3-1.7) Nucleat RBC Rel Count 0.0 % % (0.0-0.2) Absolute Neuts (auto) 3.60 10^3/uL 10^3/uL (1.70-6.50) Absolute Lymphs (auto) 1.02 10^3/uL 10^3/uL (1.00-3.00) Absolute Monos (auto) 0.72 10^3/uL 10^3/uL (0.30-0.80) Absolute Eos (auto) 0.02 10^3/uL L 10^3/uL (0.03-0.40) Absolute Basos (auto) 0.01 10^3/uL L 10^3/uL (0.02-0.10) Absolute Nucleated RBC 0.00 10^3/uL 10^3/uL (0-0.01) Immature Gran % 0.4 % % (0.0-1.1) Immature Gran # 0.02 10^3/uL 10^3/uL (0.00-0.10) Platelet Estimate Not Reported Sodium 136 mEq/L mEq/L (135-145) Potassium 3.6 mEq/L mEq/L (3.3-5.0) Chloride 100 mEq/L mEq/L (97-110) Carbon Dioxide 24 mEq/l mEq/l (22-31) Anion Gap 12 mEq/L mEq/L (8-16) BUN 8 mg/dL mg/dL (7-23) Creatinine 0.5 mg/dL L mg/dL (0.6-1.0) Estimated GFR > 60 Glucose 102 mg/dL H mg/dL (70-100) Calcium 10.2 mg/dL mg/dL (8.5-10.4) Magnesium 1.5 mg/dL L mg/dL (1.6-2.3) Total Bilirubin 1.1 mg/dL mg/dL (0.1-1.4) Conjugated Bilirubin 0.3 mg/dL mg/dL (0.0-0.5) Unconjugated Bilirubin 0.8 mg/dL mg/dL (0.0-1.1) AST 85 IU/L H IU/L (14-46) ALT 53 IU/L H IU/L (9-52) Alkaline Phosphatase 73 IU/L IU/L (38-126) Total Protein 8.2 g/dL g/dL (6.3-8.2) Albumin 4.8 g/dL g/dL (3.5-5.0) Lipase 190 IU/L IU/L (23-300) Beta HCG, Qual NEGATIVE Medications Given: Discontinued Medications Chlordiazepoxide (Librium 25 Mg Prepack#6) 1 btl TAKEHOME EDNOW ONE Stop: 04/06/18 19:48 Last Admin: 04/06/18 19:54 Dose: 1 btl Chlordiazepoxide HCl (Librium) 50 mg PO EDNOW ONE Stop: 04/06/18 17:10 Last Admin: 04/06/18 17:32 Dose: 50 mg Sodium Chloride (Ns) 1,000 mls @ 0 mls/hr IV EDNOW ONE; Wide Open PRN Reason: Protocol Stop: 04/06/18 17:10 Last Admin: 04/06/18 17:30 Dose: 1,000 mls Lorazepam (Ativan Injection) 2 mg IVP EDNOW ONE Stop: 04/06/18 17:10 Last Admin: 04/06/18 17:32 Dose: 2 mg Departure - Departure Disposition: Against Medical Advice Clinical Impression: Alcohol withdrawal Qualifiers: Complication of substance-induced condition: uncomplicated Qualified Code(s): F10.230 - Alcohol dependence with withdrawal, uncomplicated Instructions: Chlordiazepoxide (By mouth), Abuse of Alcohol (ED) Referrals: [facility] [Outside] - As per Instructions NONE *PRIMARY CARE P,. [Primary Care Provider] - As per Instructions
[2018-04-06 19:06] LABS: PLATELET COUNT 134 10^3/uL (150-400)
[2018-04-06] MEDS ORDERED: CHLORDIAZEPOXIDE 25MG PREPK#6 BTL TAKEHOME ONE (19:47)
== END 2018-04-06 19:08 | disposition left against medical advice (07) ==
DX: F10.230 Alcohol dependence with withdrawal, uncomplicated (principal); E86.9 Volume depletion, unspecified; F17.200 Nicotine dependence, unspecified, uncomplicated
CPT/HCPCS: 96374; J2060

== ENCOUNTER 2018-04-07 01:43 | Inpatient (IN) | payer MEDICAID, OTHER ==
[2018-04-07] MEDS ORDERED: LORazepam 2 MG/ML INJ ONE (02:14)
[2018-04-07] MEDS ORDERED: LORazepam 2 MG/ML INJ IVP ONE (02:19)
[2018-04-07] MEDS ORDERED: LORazepam 1 MG TAB PO PRN (02:45)
[2018-04-07 02:55] LABS: PLATELET COUNT 134 10^3/uL (150-400)
[2018-04-07] MEDS ORDERED: chlordiazePOXIDE 25 MG CAP PO ONE (03:02)
[2018-04-07] MEDS ORDERED: ONDANSETRON DISINTEGRATING 4 MG TAB PO PRN (03:03)
[2018-04-07] MEDS ORDERED: ONDANSETRON 4 MG/2 ML VIAL IVP PRN (03:03)
--- NOTE | 2018-04-07 03:05 | EDPHY ---
H & P Stated Complaint: PS, PARANOIA, HALLUCINATION Time Seen by Provider: 04/07/18 01:49 HPI/ROS: Chief Complaint: Alcohol withdrawal, hallucinations, paranoia HPI: 38-year-old woman well known to this emergency department with a history of chronic alcohol abuse. She was actually here late yesterday evening for alcohol withdrawal and left against medical advice. She was found out on the street this morning. She states she was playing hide and seek with her father who was hiding in the bushes. Per EMS she has been making very vague bizarre comments. She is very tremulous in admits to being in alcohol withdrawal. The last drink was yesterday morning. She is not suicidal or homicidal. Does not have a history of mental illness. No nausea or vomiting. No abdominal pain. No fevers or chills. ROS: 10 point Review of Systems is negative except as noted in the HPI. PMH: Chronic alcohol abuse Social History: No smoking, daily heavy alcohol Family History: non-contributory Physical Exam: Gen: Awake, Alert, No Distress, tremulous, delusional HEENT: Nose: no rhinorrhea Eyes: PERRLA, EOMI Mouth: Dry mucosa Neck: Supple, no JVD Chest: nontender, lungs clear to auscultation Heart: S1, S2 normal, no murmur Abd: Soft, non-tender, no guarding Back: no CVA tenderness, no midline tenderness Ext: no edema, non-tender Skin: no rash Neuro: CN II-XII intact, Sensation grossly intact, Strength 5/5 in bilateral upper and lower extremities - Personal History LMP (Females 10-55): 1-7 Days Ago Current Tetanus Diphtheria and Acellular Pertussis (TDAP): Yes - Medical/Surgical History Hx Asthma: No Hx Chronic Respiratory Disease: No Hx Diabetes: No Hx Cardiac Disease: No Hx Renal Disease: No Hx Cirrhosis: No Hx Alcoholism: Yes Hx HIV/AIDS: No Hx Splenectomy or Spleen Trauma: No Other PMH: anxiety, ETOH abuse - Social History Smoking Status: Current every day smoker Constitutional: Initial Vital Signs Temperature (C) 37.1 C 04/07/18 01:53 Heart Rate 98 04/07/18 01:53 Respiratory Rate 16 04/07/18 01:53 Blood Pressure 149/85 H 04/07/18 01:53 O2 Sat (%) 98 04/07/18 01:53 O2 Delivery Mode Room Air Allergies/Adverse Reactions: hydrocodone [From Vicodin] Allergy (Verified 04/06/18 15:58) Penicillins Allergy (Verified 04/06/18 15:58) Home Medications: Medication Instructions Recorded traZODone 03/04/18 Hydroxyzine HCl 03/23/18 Seroquel 03/23/18 DESVENLAFAXINE SUCCINATE 04/06/18 Medical Decision Making ED Course/Re-evaluation: 38-year-old woman with a history of chronic alcoholism presenting with alcohol withdrawal delirium. She has a CIWA score of 12. I have placed her on the CIWA protocols. She has been given Ativan. I have also given her chlordiazepoxide. I have discussed with the hospitalist, Dr. Wu. He will admit to the ICU for further care. - Data Points Laboratory Results: Laboratory Results 04/07/18 02:25 04/07/18 02:25 04/07/18 04/07/18 04/07/18 02:25 02:25 02:25 WBC 5.90 10^3/uL 10^3/uL (3.80-9.50) RBC 3.62 10^6/uL L 10^6/uL (4.18-5.33) Hgb 11.7 g/dL L g/dL (12.6-16.3) Hct 34.1 % L % (38.0-47.0) MCV 94.2 fL fL (81.5-99.8) MCH 32.3 pg pg (27.9-34.1) MCHC 34.3 g/dL g/dL (32.4-36.7) RDW 14.6 % % (11.5-15.2) Plt Count 134 10^3/uL L 10^3/uL (150-400) MPV 9.6 fL fL (8.7-11.7) Neut % (Auto) 67.8 % % (39.3-74.2) Lymph % (Auto) 17.8 % % (15.0-45.0) [place] % (Auto) 12.9 % % (4.5-13.0) Eos % (Auto) 0.5 % L % (0.6-7.6) Baso % (Auto) 0.5 % % (0.3-1.7) Nucleat RBC Rel Count 0.0 % % (0.0-0.2) Absolute Neuts (auto) 4.00 10^3/uL 10^3/uL (1.70-6.50) Absolute Lymphs (auto) 1.05 10^3/uL 10^3/uL (1.00-3.00) Absolute Monos (auto) 0.76 10^3/uL 10^3/uL (0.30-0.80) Absolute Eos (auto) 0.03 10^3/uL 10^3/uL (0.03-0.40) Absolute Basos (auto) 0.03 10^3/uL 10^3/uL (0.02-0.10) Absolute Nucleated RBC 0.00 10^3/uL 10^3/uL (0-0.01) Immature Gran % 0.5 % % (0.0-1.1) Immature Gran # 0.03 10^3/uL 10^3/uL (0.00-0.10) Sodium 136 mEq/L mEq/L (135-145) Potassium 3.6 mEq/L mEq/L (3.3-5.0) Chloride 102 mEq/L mEq/L (97-110) Carbon Dioxide 21 mEq/l L mEq/l (22-31) Anion Gap 13 mEq/L mEq/L (8-16) BUN 11 mg/dL mg/dL (7-23) Creatinine 0.5 mg/dL L mg/dL (0.6-1.0) Estimated GFR > 60 Glucose 92 mg/dL mg/dL (70-100) Calcium 9.4 mg/dL mg/dL (8.5-10.4) Urine Opiates Screen NEGATIVE (NEGATIVE) Urine Barbiturates NON-NEGATIVE H (NEGATIVE) Ur Phencyclidine Scrn NEGATIVE (NEGATIVE) Ur Amphetamine Screen NEGATIVE (NEGATIVE) U Benzodiazepines Scrn NON-NEGATIVE H (NEGATIVE) Urine Cocaine Screen NEGATIVE (NEGATIVE) U Marijuana (THC) Screen NON-NEGATIVE H (NEGATIVE) Ethyl Alcohol < 10 mg/dL mg/dL (0-10) Medications Given: Dexmedetomidine/Sodium Chloride (Precedex 4 Mcg/Ml 50 Ml (Premix)) 50 mls @ 0 mls/hr IV CONT GILL; Titrate PRN Reason: Protocol Stop: 10/04/18 04:59 Last Admin: 04/07/18 05:04 Dose: 50 mls Lorazepam (Ativan Injection) 0 mg IVP Q1H PRN; Protocol PRN Reason: Alcohol Withdrawal w/IV access Stop: 04/07/18 14:46 Last Admin: 04/07/18 05:25 Dose: 4 mg Discontinued Medications Chlordiazepoxide HCl (Librium) 50 mg PO EDNOW ONE Stop: 04/07/18 03:03 Last Admin: 04/07/18 03:12 Dose: 50 mg Lorazepam (Ativan Injection) 2 mg IVP EDNOW ONE Stop: 04/07/18 02:20 Last Admin: 04/07/18 02:34 Dose: 2 mg Departure - Departure Disposition: [facility] Clinical Impression: Alcohol withdrawal delirium Condition: Serious
[2018-04-07] MEDS ORDERED: FLUMAZENIL 0.5 MG/5 ML MDV IVP PRN (03:06)
[2018-04-07] MEDS: LORazepam 2 MG/ML INJ IVP PRN ×2 (04:20→05:25)
--- NOTE | 2018-04-07 05:03 | PDGENHP ---
History and Physical - Chief Complaint Alcohol withdrawal - History of Present Illness 38 yo F w/ hx of depression and ETOH use d/o presents with signs of alcohol withdrawal. Patient states her last drink was yesterday morning at 10:30 AM. She usually drinks a couple of bottles of wine and some vodka daily. She thinks she had a seizure on Sunday night as she woke up with bite lacerations on her tongue. She presented to the ED earlier today but eloped prior to significant evaluation. She returned to the ED tonight with signs of severe withdrawal. At the time of my evaluation patient is tremulous, mildly agitated, and clearly hallucinating. Her VS are stable. Case discussed with ED physician Dr. Cokre, previous records reviewed. History Information - Allergies/Home Medication List Allergies/Adverse Reactions: hydrocodone [From Vicodin] Allergy (Verified 04/06/18 15:58) Penicillins Allergy (Verified 04/06/18 15:58) Home Medications: traZODone 03/04/18 [Last Taken Unknown] Hydroxyzine HCl 03/23/18 [Last Taken Unknown] Seroquel 03/23/18 [Last Taken Unknown] DESVENLAFAXINE SUCCINATE 04/06/18 [Last Taken Unknown] I have personally reviewed and updated: family history, medical history - Past Medical History Additional medical history: Depression - Surgical History Reports: no pertinent surgical hx - Family History Additional family history: Alcoholism - Social History Smoking Status: Current every day smoker Review of Systems Review of Systems: ROS: 10pt was reviewed & negative except for what was stated in HPI & below Physical Exam Physical Exam: Temp Pulse Resp BP Pulse Ox 37.1 C 94 16 110/52 L 100 04/07/18 04:00 04/07/18 04:00 04/07/18 04:00 04/07/18 04:00 04/07/18 04:00 Constitutional: appears nourished, uncomfortable Eyes: PERRL, EOMI Ears, Nose, Mouth, Throat: moist mucous membranes, other (Tongue fasiculations) Cardiovascular: no murmur, rub, or gallop, tachycardia Respiratory: no respiratory distress, clear to auscultation Gastrointestinal: normoactive bowel sounds, soft, non-tender abdomen Skin: warm, normal color Musculoskeletal: full muscle strength, no muscle tenderness Neurologic: AAOx3, CN II-XII Intact, other (+UE tremor, tongue fasciculations, + visual hallucinations) Psychiatric: agitated, other (+visual hallucinations) Lab Data & Imaging Review 04/07/18 02:25 04/07/18 02:25 WBC 5.90 10^3/uL (3.80-9.50) 04/07/18 02:25 RBC 3.62 10^6/uL (4.18-5.33) L 04/07/18 02:25 Hgb 11.7 g/dL (12.6-16.3) L 04/07/18 02:25 Hct 34.1 % (38.0-47.0) L 04/07/18 02:25 MCV 94.2 fL (81.5-99.8) 04/07/18 02:25 MCH 32.3 pg (27.9-34.1) 04/07/18 02:25 MCHC 34.3 g/dL (32.4-36.7) 04/07/18 02:25 RDW 14.6 % (11.5-15.2) 04/07/18 02:25 Plt Count 134 10^3/uL (150-400) L 04/07/18 02:25 MPV 9.6 fL (8.7-11.7) 04/07/18 02:25 Neut % (Auto) 67.8 % (39.3-74.2) 04/07/18 02:25 Lymph % (Auto) 17.8 % (15.0-45.0) 04/07/18 02:25 Ware % (Auto) 12.9 % (4.5-13.0) 04/07/18 02:25 Eos % (Auto) 0.5 % (0.6-7.6) L 04/07/18 02:25 Baso % (Auto) 0.5 % (0.3-1.7) 04/07/18 02:25 Nucleat RBC Rel Count 0.0 % (0.0-0.2) 04/07/18 02:25 Absolute Neuts (auto) 4.00 10^3/uL (1.70-6.50) 04/07/18 02:25 Absolute Lymphs (auto) 1.05 10^3/uL (1.00-3.00) 04/07/18 02:25 Absolute Monos (auto) 0.76 10^3/uL (0.30-0.80) 04/07/18 02:25 Absolute Eos (auto) 0.03 10^3/uL (0.03-0.40) 04/07/18 02:25 Absolute Basos (auto) 0.03 10^3/uL (0.02-0.10) 04/07/18 02:25 Absolute Nucleated RBC 0.00 10^3/uL (0-0.01) 04/07/18 02:25 Immature Gran % 0.5 % (0.0-1.1) 04/07/18 02:25 Immature Gran # 0.03 10^3/uL (0.00-0.10) 04/07/18 02:25 Sodium 136 mEq/L (135-145) 04/07/18 02:25 Potassium 3.6 mEq/L (3.3-5.0) 04/07/18 02:25 Chloride 102 mEq/L (97-110) 04/07/18 02:25 Carbon Dioxide 21 mEq/l (22-31) L 04/07/18 02:25 Anion Gap 13 mEq/L (8-16) 04/07/18 02:25 BUN 11 mg/dL (7-23) 04/07/18 02:25 Creatinine 0.5 mg/dL (0.6-1.0) L 04/07/18 02:25 Estimated GFR > 60 04/07/18 02:25 Glucose 92 mg/dL (70-100) 04/07/18 02:25 Calcium 9.4 mg/dL (8.5-10.4) 04/07/18 02:25 Urine Opiates Screen NEGATIVE (NEGATIVE) 04/07/18 02:25 Urine Barbiturates NON-NEGATIVE (NEGATIVE) H 04/07/18 02:25 Ur Phencyclidine Scrn NEGATIVE (NEGATIVE) 04/07/18 02:25 Ur Amphetamine Screen NEGATIVE (NEGATIVE) 04/07/18 02:25 U Benzodiazepines Scrn NON-NEGATIVE (NEGATIVE) H 04/07/18 02:25 Urine Cocaine Screen NEGATIVE (NEGATIVE) 04/07/18 02:25 U Marijuana (THC) Screen NON-NEGATIVE (NEGATIVE) H 04/07/18 02:25 Ethyl Alcohol < 10 mg/dL (0-10) 04/07/18 02:25 Assessment & Plan Assessment: 38 yo F w/ depression and ETOH use d/o presents with alcohol withdrawal. Plan: 1. ETOH use d/o complicated by acute withdrawal - This appears severe as patient reports a seizure on the night prior to presentation and she is currently experiencing visual hallucinations. These symptoms as well as agitation are progressing despite Ativan 6 mg IV and Librium 50 mg PO since arrival. - Will start Precedex gtt - Daily MVI, folate, thiamine - CM consult Diet - NPO Code - Full Ppx - LMWH Dispo - Admit under observation status
[2018-04-07] MEDS: DEXMEDETOMIDINE IN 0.9 % NACL 50 ML IV SCH ×4 (05:04→17:30)
[2018-04-07] MEDS: ENOXAPARIN 40 MG/0.4 ML SYR SC SCH (10:21)
[2018-04-07] MEDS ORDERED: PROTOCOL CALCIUM 1 DOSE IV PRN (11:14)
[2018-04-07] MEDS ORDERED: PROTOCOL POTASSIUM 1 DOSE MISC PRN (11:14)
[2018-04-07] MEDS ORDERED: PROTOCOL K PHOSPHATE 1 DOSE IV PRN (11:14)
[2018-04-07] MEDS ORDERED: PROTOCOL MAGNESIUM 1 DOSE IV PRN (11:14)
--- NOTE | 2018-04-07 11:16 | PDMN ---
Medical Necessity Medical necessity: Pt meets IP criteria per & MCG M-595; est los >2 mn for eval/tx of severe alcohol withdrawal w/visual hallucinations & agitation; admit to Step-Down IU for close monitoring, CIWA protocol & IV Precedex; per H&P & order 04/07/18
[2018-04-07] MEDS: MULTIVITAMINS 1 EACH TAB PO SCH (11:50)
[2018-04-07] MEDS: FOLIC ACID 1 MG TAB PO SCH (11:51)
[2018-04-07] MEDS: LORazepam 1 MG TAB PO SCH ×5 (11:51→21:47)
--- NOTE | 2018-04-07 12:08 | GCON ---
[f rep st] CONSULTATION CRITICAL CARE CONSULTATION DATE OF CONSULTATION: 04/07/2018 REASON FOR CONSULTATION: Intensive care unit evaluation and management of alcohol withdrawal. HISTORY OF PRESENT ILLNESS: The patient is a 38-year-old with a history of depression and heavy alco hol use who presented to the emergency department in the early hours this morning with alcohol withdr awal. She was in the emergency department previously a number of hours before and left against medic al advice. She was apparently found wandering in the street, confabulating and confused. The parame dics were called and she was brought to the hospital. By report, her last drink was the morning of . She was tremulous, tachycardic, and mildly hypotensive. Her initial CIWA in the ED was 12. She was placed on the CIWA protocol and admission. She was admitted to the intensive care unit. C IWA scores remain high and she has required Precedex overnight. She is currently somnolent and stabl e. She has had multiple admissions over the last 4 months to the emergency department, largely related t o alcohol. She has not been previously admitted. PAST MEDICAL HISTORY: Remarkable for depression and alcoholism. MEDICATION: Listed home medications possibly include quetiapine and hydroxyzine. Other possible med ications, include trazodone, Seroquel, and desvenlafaxine. ALLERGIES: Drug allergies, hydrocodone, penicillins. SOCIAL HISTORY: Unobtainable from the patient. Heavy alcohol use, reportedly an every day smoker. Apparently, she lives alone. Was employed based on previous ED notes. Unclear if she remains employ ed. FAMILY HISTORY: Unobtainable. REVIEW OF SYSTEMS: Unobtainable. PHYSICAL EXAMINATION: GENERAL: Reveals a woman who is quite somnolent. She arouses, but will not a nswer any detailed questions. She will state her first name with stimulation. Unclear she know she is in the hospital. HEENT: Unremarkable for lymphadenopathy or thyromegaly. Mucous membranes are s lightly dry. Pupils are equal. There is no jugular venous distention. CHEST: Clear bilaterally. Breath sounds are somewhat diminished at the bases, but she will not take deep breaths for me. HEART : Regular in rate and rhythm. There are no significant murmurs or gallops. ABDOMEN: Soft and nont lam. No organomegaly is appreciated. : There is no Aldridge catheter in place. EXTREMITIES: Unr emarkable for edema, cords, or tenderness. There is some erythema and what appears to be some chroni c swelling over the olecranon on the right. There is no fluctuance or apparent tenderness. NEUROLOG IC: Nonfocal. She moves all extremities equally, arouses weakly, and is being sedated with Precedex . She is oriented x1. She does have a tremor. No seizure activity is noted. LABORATORY DATA: White blood cell count on admission was 5900, hematocrit 34, platelets 134,000. So dium 136, potassium 3.6, CO2 21, BUN 11 with creatinine 0.5. Glucose and calcium were normal. Blood alcohol on admission was negative. Tox screen was positive for barbiturates, benzodiazepines, and T HC. ASSESSMENT: 1. Alcohol withdrawal. Clinical [place] Withdrawal Assessment for Alcohol scores have been high. She received significant benzodiazepines and is now on a Precedex drip. She has received thiamine a nd had 1 dose of Librium in the emergency department. She is currently stable. 2. History of substance abuse. Toxicology screen is positive for barbiturates, as well as tetrahydr ocannabinol. The positive benzodiazepines likely were secondary to her emergency department visit earnestine dickey in the day. 3. History of chronic alcoholism. There are questionable withdrawal seizures reported in the past. She has had multiple admissions to the emergency department over the last 3-4 months. Social Servic es will need to be involved. 4. History of depression. 5. Prophylaxis. She is on enoxaparin. Famotidine will be added to her regimen until she is startin g to take p.o. PLAN: The patient will be kept in the ICU on the CIWA protocol and on Precedex for now. Scheduled A tivan will also be given. Electrolytes will be followed. She will be placed on the electrolyte repl acement protocols. She will be kept n.p.o. for now and evaluated by Speech as her mental status impr oves and she is felt to be safe for swallow. Further plans and recommendations will be made based on her progress over the next 12-24 hours. /[id number]/MODL
[2018-04-07] MEDS ORDERED: POTASSIUM CL 10 MEQ TAB PO ONE ×2 (14:47→21:30)
[2018-04-07] MEDS ORDERED: MAGNESIUM SULF 1 GM/DEXTROSE 100 ML IV ONE (14:47)
[2018-04-07] MEDS: NS 1,000 ML IV SCH (15:27)
--- NOTE | 2018-04-07 16:10 | ASMTCMCOM ---
CM Note CM Note Notes: 38yo female admitted for severe ETOH W/D, Sz. Patient has a Hx of ETOH abuse, Depression. She is a smoker. She is lethargic. CM to follow for possible discharge needs, ETOH Tx res. Date Signed: 04/07/2018 04:09 PM Electronically Signed By:Chapis Dixon LCSW
--- NOTE | 2018-04-07 16:12 | ASMTLACE ---
EUSEBIO Acuity / Level of Answers: Yes Care: Did the patient have an inpatient admission? Comorbidities - select Answers: Other Notes: Smoker, severe ETOH W/D all that apply # of Emergency department Answers: 5-8 visits in the last 6 months Social determinants Answers: History of substance abuse (ETOH, street drugs, prescription drugs, etc.) Mental health diagnosis (anxiety, depression, pers onality disorders, etc.) Score: 14 Date Signed: 04/07/2018 04:11 PM Electronically Signed By:Chapis Dixon LCSW
[2018-04-07] MEDS: ACETAMINOPHEN 325 MG TAB PO PRN (21:45)
[2018-04-08] MEDS: DEXMEDETOMIDINE IN 0.9 % NACL 50 ML IV SCH ×2 (00:07→04:21)
[2018-04-08] MEDS: NS 1,000 ML IV SCH (00:09)
[2018-04-08] MEDS: LORazepam 1 MG TAB PO SCH ×6 (02:10→21:18)
[2018-04-08] MEDS: MULTIVITAMINS 1 EACH TAB PO SCH (08:27)
[2018-04-08] MEDS: ENOXAPARIN 40 MG/0.4 ML SYR SC SCH (08:27)
[2018-04-08] MEDS: FOLIC ACID 1 MG TAB PO SCH (08:27)
[2018-04-08] MEDS ORDERED: MAGNESIUM SULF 1 GM/DEXTROSE 100 ML IV ONE (08:49)
[2018-04-08] MEDS: ACETAMINOPHEN 325 MG TAB PO PRN (10:41)
[2018-04-08] MEDS: LORazepam 2 MG/ML INJ IVP PRN ×2 (10:42→16:20)
[2018-04-08] MEDS: QUEtiapine FUMARATE 100 MG TAB PO SCH (11:15)
[2018-04-08] MEDS: MBX SOLN 30 ML BOTTLE PO PRN (12:57)
--- NOTE | 2018-04-08 13:15 | HOSPPROG ---
Hospitalist Progress Note Assessment/Plan: 38 yo F w acute alcohol withdrawal, likely seizure alcohol withdrawal: precedx off more alert less tachycardic seizure: treat withdrawal oral lesions: mbx solution proph: lmwh dispo: to floor Subjective: more alert. case d/w dr erwin Objective: Vital Signs Temp Pulse Resp BP Pulse Ox 37.5 C 87 16 127/78 H 100 04/08/18 11:35 04/08/18 11:35 04/08/18 11:35 04/08/18 11:35 04/08/18 11:35 Laboratory Results 04/08/18 05:28 04/08/18 05:28 04/07/18 04/08/18 04/09/18 05:59 05:59 05:59 Intake Total 530 2615 Output Total 600 900 Balance 530 2014 - Physical Exam Constitutional: no apparent distress, appears nourished Eyes: PERRL, anicteric sclera Ears, Nose, Mouth, Throat: moist mucous membranes, hearing normal Cardiovascular: no murmur, rub, or gallop, tachycardia Respiratory: no respiratory distress, no rales or rhonchi Gastrointestinal: normoactive bowel sounds, soft, non-tender abdomen Genitourinary: no bladder fullness, No urias in urethra Skin: warm, normal color Musculoskeletal: full muscle strength, no muscle tenderness Neurologic: AAOx3 ICD10 Worksheet Patient Problems: Problems Problem Status Onset Alcohol withdrawal delirium Acute Acute alcohol intoxication Acute Nausea & vomiting Acute
--- NOTE | 2018-04-08 14:40 | PDINTPN ---
[employer] Progress Note Assessment/Plan: 38 F with history of depression and etoh abuse admitted with etoh wd, delerium and presumed seizure [employer]. * ETOH wd. Precedex stopped this am and mental status clear for me. Continue scheduled meds and observe for stability. * Sz? probably related to wd syndrome. No further sz noted * Tongue lac- magic mouthwash Subjective: fells better, though complaining of tongue pain. Objective: Vital Signs Temp Pulse Resp BP Pulse Ox 37.5 C 87 16 127/78 H 100 04/08/18 11:35 04/08/18 11:35 04/08/18 11:35 04/08/18 11:35 04/08/18 11:35 Laboratory Results 04/08/18 05:28 04/08/18 05:28 04/07/18 04/08/18 04/09/18 05:59 05:59 05:59 Intake Total 530 2615 360 Output Total 600 2400 Balance 530 2014 Physical Exam - Physical Exam General Appearance: alert, no apparent distress, thin EENT: PERRL/EOMI, other (tongue edema with abrasions right) Neck: supple Respiratory: lungs clear, normal breath sounds, decreased breath sounds, No respiratory distress, No accessory muscle use Cardiac/Chest: regular rate, rhythm, No edema Abdomen: non-tender, soft, No distended Skin: normal color, warm/dry, No cyanosis Lymphatic: no adenopathy Extremities: No pedal edema Neuro/Psych: alert, normal mood/affect, oriented x 3 ICD10 Worksheet Patient Problems: Problems Problem Status Onset Alcohol withdrawal delirium Acute Acute alcohol intoxication Acute Nausea & vomiting Acute
[2018-04-08] MEDS ORDERED: POTASSIUM CL 10 MEQ TAB PO ONE (20:55)
[2018-04-08] MEDS ORDERED: QUEtiapine FUMARATE 50 MG TAB PO SCH (21:00)
[2018-04-08] MEDS ORDERED: QUEtiapine FUMARATE 200 MG TAB PO SCH (21:00)
[2018-04-09] MEDS: LORazepam 1 MG TAB PO SCH ×3 (02:08→09:05)
[2018-04-09] MEDS ORDERED: CALCIUM GLUCONATE 50 ML IV ONE (06:10)
[2018-04-09 07:42] VITALS: BP 121/54
[2018-04-09] MEDS: QUEtiapine FUMARATE 100 MG TAB PO SCH (08:31)
[2018-04-09] MEDS: FOLIC ACID 1 MG TAB PO SCH (08:31)
[2018-04-09] MEDS: ENOXAPARIN 40 MG/0.4 ML SYR SC SCH (08:31)
[2018-04-09] MEDS: MBX SOLN 30 ML BOTTLE PO PRN (08:31)
[2018-04-09] MEDS: MULTIVITAMINS 1 EACH TAB PO SCH (08:31)
[2018-04-09] MEDS ORDERED: Desvenlafaxine Succinate [Pristiq] 50 MG PO SCH (09:00)
[2018-04-09] MEDS ORDERED: CYANO/VITAMIN B12 1000 MCG TAB PO SCH (09:00)
[2018-04-09] MEDS ORDERED: LORazepam 1 MG TAB PO PRN (10:58)
--- NOTE | 2018-04-09 12:16 | HOSPPROG ---
Hospitalist Progress Note Assessment/Plan: 38 yo F w acute alcohol withdrawal, likely seizure alcohol withdrawal: precedex, still receiving 2 mg po ativan q4h dc scheduled ativan cont CIWA with prn ativan seizure: treating withdrawal oral lesions: mbx solution proph: lmwh dispo: cont inpt, med surg Subjective: Pt awake and oriented, wants to leave. Expresses that she will continue to drink and does not want to continue detox. Objective: Vital Signs Temp Pulse Resp BP Pulse Ox 36.8 C 110 H 16 121/54 H 98 04/09/18 00:00 04/09/18 07:41 04/09/18 07:41 04/09/18 07:41 04/09/18 07:41 Laboratory Results 04/08/18 05:28 04/09/18 05:00 04/08/18 04/09/18 04/10/18 05:59 05:59 05:59 Intake Total 2615 2391 Output Total 600 4000 Balance 2014 - Physical Exam Constitutional: no apparent distress Eyes: PERRL Ears, Nose, Mouth, Throat: moist mucous membranes Cardiovascular: regular rate and rhythym Respiratory: no respiratory distress Gastrointestinal: normoactive bowel sounds, soft, non-tender abdomen Skin: warm Musculoskeletal: full muscle strength Neurologic: AAOx3 Psychiatric: interacting appropriately, poor insight ICD10 Worksheet Patient Problems: Problems Problem Status Onset Acute alcohol intoxication Acute Alcohol withdrawal delirium Acute Nausea & vomiting Acute
--- NOTE | 2018-04-09 16:36 | ASDISCHSUM ---
Discharge Information Plan Status: Medically Cleared to Leave: Discharge Date:04/09/2018 03:35 PM CM D/C Disposition:Against Medical Advice ADT D/C Disposition:Against Medical Advice Projected Discharge Date:04/09/2018 12:00 AM Transportation at D/C: Discharge Delay Reason: Follow-Up Date:04/09/2018 12:00 AM Discharge Slot: Final Diagnosis:Severe ETOH W/D Placement Information Patient Contact Information Contact Name:PANCHITO Relationship:Other Address: City: [facility] Phone: State/Zip Code: Email: Financial Information Financial Class:Medicaid Primary Plan Desc:[employer] [place] Primary Plan Number:[id number] Secondary Plan Desc: Secondary Plan Number: Assessment Information [facility] CM Progress Note CM Note CM Note Notes: 38yo female admitted for severe ETOH W/D, Sz. Patient has a Hx of ETOH abuse, Depression. She is a smoker. She is lethargic. CM to follow for possible discharge needs, ETOH Tx res. Date Signed: 04/07/2018 04:09 PM Electronically Signed By:Chapis Dixon LCSW LACE LACE Acuity / Level of Answers: Yes Care: Did the patient have an inpatient admission? Comorbidities - select Answers: Other Notes: Smoker, severe ETOH W/D all that apply # of Emergency department Answers: 5-8 visits in the last 6 months Social determinants Answers: History of substance abuse (ETOH, street drugs, prescription drugs, etc.) Mental health diagnosis (anxiety, depression, pers onality disorders, etc.) Score: 14 Date Signed: 04/07/2018 04:11 PM Electronically Signed By:Chapis Dixon LCSW Case Management Discharge Plan Note Case Management Discharge Discharge Order Complete? Answers: No Notes: Left AMA Discharge Comments Notes: Patient left AMA Date Signed: 04/09/2018 04:35 PM Electronically Signed By:Chapis Dixon LCSW Intervention Information
--- NOTE | 2018-04-09 17:21 | PDDCSUM ---
Discharge Summary Discharge Summary: Admit date: 04/07 Date pt left AMA: 04/09 Hx: 38 yo female with h/o alcohol abuse admitted after suspected seizure, presumable related to alcohol withdrawal. Hospital course: Pt was admitted to SDU for CIWA protocol. She required Precedex, which was weaned off. Her CIWA's overnight prior to her leaving were 3-5. She was awake, alert and oriented. She stated she wished to leave AMA and plans to continue drinking. She is able to express understanding of the risk of seizures or even with alcohol withdrawal. She has not received Ativan for >6 hrs. She has decisional capacity. Despite myself and RN urging her to stay, she wished to leave AMA and did so. She will not drive. She has f /u with [facility] and her outpatient psychiatrist. No new medications.
[2018-04-10] MEDS ORDERED: THIAMINE HCL 100 MG TAB PO SCH (03:06)
== END 2018-04-09 15:35 | disposition left against medical advice (07) | DRG 770 ==
LOC: EDUNIT# → F2N 03:49
PROVIDERS: ADMIT Student in an Organized Health Care Education/Training Program; ATTEND Hospitalist
DX: F10.232 Alcohol dependence with withdrawal with perceptual disturbance (principal); F32.9 Major depressive disorder, single episode, unspecified; F17.200 Nicotine dependence, unspecified, uncomplicated; S01.512A Laceration without foreign body of oral cavity, initial encounter; X58.XXXA Exposure to other specified factors, initial encounter; Y92.9 Unspecified place or not applicable
CPT/HCPCS: 80305; 96374; 97116-GP; 97161-GP; G0480; J0610; J1650; J2060; J3475

== ENCOUNTER 2018-05-10 20:26 | Emergency (ER) | payer OTHER, MEDICAID ==
--- NOTE | 2018-05-10 20:31 | EDPHY ---
H & P Time Seen by Provider: 05/10/18 20:26 HPI/ROS: CHIEF COMPLAINT: Suspected alcohol abuse HISTORY OF PRESENT ILLNESS: 38 year old female arrives via ambulance for suspected alcohol abuse. Patient unable to ambulate without assistance. No reports of trauma or assault. No fall from height. No structures of height near patient. Her fiance is followed the ambulance and he is planning on taking the patient to [facility] for rehabilitation. They have a standing appointment this evening at [facility]. Patient denies suicidal or homicidal ideation. Denies hallucination. Denies seizure. REVIEW OF SYSTEMS: 10 systems reviewed and negative with the exception of the elements mentioned in the history of present illness PAST MEDICAL/SURGICAL HISTORY: no anticoagulant use, no relevant medical/ surgical history SOCIAL HISTORY: Positive for witnessed and self disclosed alcohol use PHYSICAL EXAM 1) GENERAL: [Well-developed, well-nourished, alert and oriented. Smells of alcohol 2) HEAD: Normocephalic, atraumatic 3) HEENT: Pupils equal, round, reactive to light bilaterally. Negative Horners. Nasopharynx, oropharynx, clear. No deformity or angulation of nose. No septal hematoma. No rhinorrhea. No oral trauma. Ears bilaterally with normal tympanic membranes. No hemotympanum. No fluid or blood in the external auditory canal. No raccoon eyes. No Lim sign. Teeth are normally aligned with no gross malocclusion, TMJ bilaterally nontender, facial bones nontender including the zygomatic arch, maxilla mandible. 4) NECK: No cervical collar is on. Posterior cervical spine is nontender, no stepoff, no effusion. Full range of motion which does not elicit any midline cervical spine pain, no posterior midline tenderness, no step-off. 5) LUNGS: Clear to auscultation bilaterally, no wheezes, no rhonchi, no retractions. No obvious signs of trauma. No chest wall pain. No flaring, no grunting. Moving symmetrically. No crepitus. 6) HEART: [Regular rate and rhythm, 7) ABDOMEN: No guarding, no rebound, no focal tenderness, no peritoneal signs, no signs of trauma, no ecchymosis 8) MUSCULOSKELETAL: Moving all extremities, no focal areas of tenderness, no obvious trauma. 9) BACK: Patient logrolled while holding inline traction.No midline vertebral tenderness, no fluctuance, no step-off, no obvious trauma, no visual or palpable abnormality. 10) SKIN: No laceration. No abrasion DIFFERENTIAL DIAGNOSIS: In no particular orderincluding but not limited to hypoglycemia, infectious process, electrolyte abnormality, head injury and intoxicants. - Medical/Surgical History Hx Asthma: No Hx Chronic Respiratory Disease: No Hx Diabetes: No Hx Cardiac Disease: No Hx Renal Disease: No Hx Cirrhosis: No Hx Alcoholism: Yes Hx HIV/AIDS: No Hx Splenectomy or Spleen Trauma: No Other PMH: anxiety, ETOH abuse - Social History Smoking Status: Current every day smoker Constitutional: Initial Vital Signs Temperature (C) 36.8 C 05/10/18 20:29 Heart Rate 92 05/10/18 20:29 Respiratory Rate 18 05/10/18 20:29 Blood Pressure 140/71 H 05/10/18 20:29 O2 Sat (%) 93 05/10/18 20:29 O2 Delivery Mode Room Air Allergies/Adverse Reactions: hydrocodone [From Vicodin] Allergy (Verified 04/25/18 13:39) Vomiting Penicillins Allergy (Verified 04/25/18 13:39) Hives Home Medications: Medication Instructions Recorded Quetiapine Fumarate [Quetiapine 200 mg PO HS 04/07/18 Fumarate] hydrOXYzine HCL [hydrOXYzine HCL] 50 mg PO Q8 PRN 04/07/18 Cyanocobalamin [Vitamin B12 (*)] 1,000 mcg PO DAILY 04/08/18 DESVENLAFAXINE SUCCINATE [Pristiq] 50 mg PO DAILY 04/08/18 Herbals/Supplements -Info Only 1 ea PO DAILY 04/08/18 QUEtiapine FUMARATE [Seroquel 50 50 mg PO HS 04/08/18 mg (*)] Medical Decision Making ED Course/Re-evaluation: 9:05 p.m.: The patient's fiancee is here to take her to [facility] for inpatient rehabilitation. I spoke with the fiancee and patient at this time. She requested oral Ativan prior to going to [facility]. They are planning on taking an Uber to [facility]. She denies suicidal or homicidal ideation. Doubt delirium tremens. Doubt alcoholic hallucinosis. 9:12 p.m.Informed by the sagare that because she missed her initial 8:00 p.m. entry appointment at [facility] this evening she could no longer be evaluated this evening and that they can now only see her at 8:00 a.m. tomorrow morning. Discussed having the patient go home with the fiance continue sobering this evening versus going to [facility]. 9:24 p.m.: Was informed at this time that the patient's hammad had left the ER. She called the patient on speaker phone with me in the room . She requested that he returned a pick her up to go home. He informed her that he was not returning to pick her up, that she had to "figure out things on her own ". Plan will be discharge to [facility] with Librium when she is able to ambulate without assistance. 12:15 a.m.: Patient observed walking around the emergency department without assistance with stable steady gait, clear speech pattern, alert oriented person place time events. - Data Points Medications Given: Discontinued Medications Chlordiazepoxide (Librium 25 Mg Prepack#6) 1 btl TAKEHOME EDNOW ONE Stop: 05/10/18 22:12 Last Admin: 05/10/18 22:24 Dose: 1 btl Lorazepam (Ativan) 1 mg PO EDNOW ONE Stop: 05/10/18 21:07 Last Admin: 05/10/18 21:10 Dose: 1 mg Departure - Departure Disposition: Home, Routine, Self-Care Clinical Impression: Alcohol abuse Condition: Good Instructions: Chlordiazepoxide (By mouth), Abuse of Alcohol (ED) Additional Instructions: Have your fichristian take you directly to [facility] where you have a standing appointment tonight. Referrals: [facility] ([place],. [Clinic] - As per Instructions [facility] 24 Hours [Outside] - As per Instructions
[2018-05-10] MEDS ORDERED: LORazepam 1 MG TAB PO ONE (21:06)
[2018-05-10] MEDS ORDERED: CHLORDIAZEPOXIDE 25MG PREPK#6 BTL TAKEHOME ONE (22:11)
[2018-05-11] MEDS ORDERED: LORazepam 1 MG TAB PO ONE (00:15)
[2018-05-11] MEDS ORDERED: chlordiazePOXIDE 25 MG CAP PO ONE (02:14)
[2018-05-11] MEDS ORDERED: chlordiazePOXIDE 25 MG CAP ONE (02:15)
[2018-05-11 02:18] VITALS: BP 128/74
== END 2018-05-11 04:00 ==
LOC: EDUNIT#
DX: F10.10 Alcohol abuse, uncomplicated (principal)